=== PATIENT | female | born 1960 | race Caucasian/White ===

== ENCOUNTER 2017-01-18 15:43 | Emergency (ER) | payer OTHER ==
[2017-01-18 16:33] LABS: Bilirubin Negative (Negative); Blood, Urine Negative (Negative); Clarity Clear (Clear); Glucose, Urine (Dipstick) Negative (Negative); Leukocyte Trace (Negative); Nitrite Negative (Negative); Protein, Urine (Dipstick) Negative (Neg-Trace); Specific Gravity, Urine 1.015 (1.005-1.030); Urobilinogen 0.2 mg/dL (0.2-1.0); pH, Urine 6.5 (5.0-9.0)
[2017-01-18 16:49] LABS: Bacteria/HPF None Seen HPF (None Seen); Crystals/HPF None Seen HPF (Negative); Hyaline Casts/LPF NONE SEEN LPF (0-3 Hyaline); Other Casts/LPF None Seen LPF (0-3 Hyaline); Oval Fat Bodies/HPF None Seen HPF (None Seen); RBC/HPF None Seen HPF (0-3); Renal Epithelial None Seen HPF (0-3); Sperm/HPF None Seen HPF (None Seen); Squamous Epithelial None Seen HPF (0-3); Transitional Epithelial NONE SEEN HPF (0-3); Trichomonas/HPF None Seen HPF (None Seen); WBC/HPF 0-3 HPF (0-3); Yeast-All Forms None Seen HPF (None Seen)
== END 2017-01-18 16:53 | disposition home or self-care (01) ==
LOC: BURERS 15:43
DX: S30.0XXA Contusion of lower back and pelvis, initial encounter (principal); R42 Dizziness and giddiness; E03.9 Hypothyroidism, unspecified; J44.9 Chronic obstructive pulmonary disease, unspecified; F41.9 Anxiety disorder, unspecified; F31.9 Bipolar disorder, unspecified; F17.210 Nicotine dependence, cigarettes, uncomplicated; Z79.82 Long term (current) use of aspirin; Z79.899 Other long term (current) drug therapy; W28.XXXA Contact with powered lawn mower, initial encounter
CPT/HCPCS: 81003; 81015

== ENCOUNTER 2017-02-17 16:37 | Outpatient (CLI) | payer OTHER ==
[2017-02-17 17:48] LABS: ALT (SGPT) 64 U/L (8-55); AST (SGOT) 67 U/L (5-34); Albumin 4.2 g/dL (3.5-5.0); Alkaline Phosphatase 93 U/L (40-150); Bilirubin, Direct 0.3 mg/dL (0.1-0.3); Bilirubin, Total 0.5 mg/dL (0.2-1.2); Protein, Total 6.9 g/dL (6.0-8.3)
== END 2017-02-17 16:38 | disposition home or self-care (01) ==
LOC: HPCALD 16:37
PROVIDERS: ATTEND Physician Assistant
DX: B18.2 Chronic viral hepatitis C (principal)
CPT/HCPCS: 36415; 80076

== ENCOUNTER 2017-05-07 09:08 | Emergency (ER) | payer OTHER ==
[2017-05-07] MEDS ORDERED: ceFAZolin Sodium 1 GM VIAL ONE (09:35)
[2017-05-07] MEDS ORDERED: Sterile Water 10 ML ONE (09:37)
== END 2017-05-07 09:58 | disposition home or self-care (01) ==
LOC: BURERS 09:08
DX: M79.642 Pain in left hand (principal); E03.9 Hypothyroidism, unspecified; J44.9 Chronic obstructive pulmonary disease, unspecified; F31.9 Bipolar disorder, unspecified; F41.9 Anxiety disorder, unspecified; F17.210 Nicotine dependence, cigarettes, uncomplicated; Z79.82 Long term (current) use of aspirin; Z79.899 Other long term (current) drug therapy
CPT/HCPCS: 96372; A4216; J0690

== ENCOUNTER 2017-05-08 21:16 | Emergency (ER) | payer OTHER ==
[2017-05-08] MEDS ORDERED: Clindamycin/D5W 900 mg/50 ml Premix Bag ONE (22:16)
[2017-05-08] MEDS ORDERED: Ketorolac Tromethamine 30 MG/ML VIAL ONE (22:16)
[2017-05-08 22:28] LABS: #Basophils 0.2 thou/uL (0.0-0.2); #Eosinphils 0.3 thou/uL (0.0-0.7); #Lymphocytes 3.8 thou/uL (1.20-3.40); #Neutrophils 9.1 thou/uL (1.40-6.50); %Basophils 1.1 % (0.0-1.0); %Eosinophils 2.1 % (0.0-10.0); %Lymphocytes 26.5 % (21.0-51.0); %Monocytes 6.9 % (0.0-10.0); %Neutrophils 63.4 % (42.0-75.0); Hemoglobin 14.2 g/dL (12.0-16.0); Mean Corpuscular HGB CONC 35.6 g/dL (32.0-36.0); Mean Corpuscular Hemoglobin 31.6 pg (27.0-31.0); Mean Corpuscular Volume 88.6 fl (81.0-99.0); Mean Platelet Volume 6.2 fL (7.4-10.4); Platelet Count 292 thou/uL (130-400); RBC Distribution Width 11.2 % (11.5-14.5); Red Blood Cell (RBC) Count 4.51 mill/uL (4.20-5.40); White Blood Cell (WBC) Count 14.4 thou/uL (4.8-10.8)
[2017-05-08 22:32] LABS: Bilirubin Negative (Negative); Blood, Urine Negative (Negative); Clarity Slightly Cloudy (Clear); Glucose, Urine (Dipstick) Negative (Negative); Leukocyte Trace (Negative); Nitrite Negative (Negative); Protein, Urine (Dipstick) Negative (Neg-Trace); Urobilinogen 0.2 mg/dL (0.2-1.0)
[2017-05-08 22:40] LABS: Bacteria/HPF Rare-Few HPF (None Seen); RBC/HPF 0-3 HPF (0-3); Squamous Epithelial 0-3 HPF (0-3); WBC/HPF 0-3 HPF (0-3)
[2017-05-08 22:48] LABS: ALT (SGPT) 34 U/L (8-55); AST (SGOT) 33 U/L (5-34); Albumin 4.3 g/dL (3.5-5.0); Alkaline Phosphatase 87 U/L (40-150); Anion Gap 15 mmol/L (10-20); BUN (Urea Nitrogen) 7 mg/dL (9.8-20.1); Bilirubin, Total 0.6 mg/dL (0.2-1.2); Calc. Creatinine Clearance 0 mL/min (70-130); Calcium 9.6 mg/dL (7.8-10.44); Carbon Dioxide 27 mmol/L (22-29); Chloride 100 mmol/L (98-107); Estimated GFR-MDRD 73; Globulin 3.9 g/dL (2.4-3.5); Glucose 93 mg/dL (70-105); Potassium 3.9 mmol/L (3.5-5.1); Protein, Total 8.2 g/dL (6.0-8.3); Sodium 138 mmol/L (136-145)
== END 2017-05-08 23:28 | disposition home or self-care (01) ==
LOC: BURERS 21:16
DX: L03.114 Cellulitis of left upper limb (principal); E03.9 Hypothyroidism, unspecified; J44.9 Chronic obstructive pulmonary disease, unspecified; F41.9 Anxiety disorder, unspecified; F31.9 Bipolar disorder, unspecified; F17.210 Nicotine dependence, cigarettes, uncomplicated; Z79.82 Long term (current) use of aspirin; Z79.899 Other long term (current) drug therapy; Z79.891 Long term (current) use of opiate analgesic
CPT/HCPCS: 36415; 80053; 81003; 81015; 83605; 85025; 87040; 87086; 96365; 96375; J1885; J3490

== ENCOUNTER 2017-05-10 13:06 | Emergency (ER) | payer OTHER ==
[2017-05-10] MEDS ORDERED: Adacel (T-DAP) 0.5 ML VIAL ONE (13:19)
[2017-05-10] MEDS ORDERED: Lidocaine 1% w/Epinephrine 1:100K 30 ML VIAL ONE (13:38)
[2017-05-10] MEDS ORDERED: Ibuprofen 200 MG TAB ONE (14:00)
== END 2017-05-10 14:18 | disposition home or self-care (01) ==
LOC: BURERS 13:06
DX: L02.512 Cutaneous abscess of left hand (principal); E03.9 Hypothyroidism, unspecified; J44.9 Chronic obstructive pulmonary disease, unspecified; F31.9 Bipolar disorder, unspecified; F41.9 Anxiety disorder, unspecified; F17.210 Nicotine dependence, cigarettes, uncomplicated
CPT/HCPCS: 10060; 87070; 87205; 90471; 90715; J2001

== ENCOUNTER 2017-05-11 17:13 | Inpatient (IN) | payer OTHER ==
[2017-05-11 17:40] VITALS: BMI 33.2
[2017-05-11] MEDS ORDERED: Bisacodyl 10 MG SUPP PR PRN (19:00)
[2017-05-11] MEDS ORDERED: HYDROcodone/Acetaminophen 10/325 mg Tablet PO PRN (19:00)
[2017-05-11] MEDS ORDERED: Ondansetron ODT 4 MG TAB PO PRN ×2 (19:00→20:47)
[2017-05-11] MEDS ORDERED: Acetaminophen 325 MG TAB PO PRN (19:00)
[2017-05-11] MEDS ORDERED: Milk Of Magnesia 30 ML UDCUP PO PRN (19:00)
[2017-05-11] MEDS ORDERED: Temazepam 15 MG CAP PO SCH (21:00)
[2017-05-11] MEDS ORDERED: Vancomycin HCl 1 GM in Sodium Chloride 0.9% 250 ML 250 ML IVPB SCH (21:00)
[2017-05-11] MEDS: Atorvastatin Calcium 10 MG TAB PO SCH (23:40)
[2017-05-11] MEDS: rOPINIRole HCl 0.25 MG TAB PO SCH (23:40)
[2017-05-11] MEDS: Nicotine 14 MG PATCH TD SCH (23:41)
[2017-05-11] MEDS: Senokot 8.6 MG TAB PO SCH (23:41)
[2017-05-12] MEDS: Piperacillin/Tazobactam 3.375 GM in Sodium Chloride 0.9% 100 ML IVPB SCH ×4 (01:25→18:06)
[2017-05-12 05:06] LABS: ALT (SGPT) 46 U/L (8-55); AST (SGOT) 70 U/L (5-34); Albumin 3.7 g/dL (3.5-5.0); Alkaline Phosphatase 81 U/L (40-150); Anion Gap 12 mmol/L (10-20); BUN (Urea Nitrogen) 13 mg/dL (9.8-20.1); Bilirubin, Total 0.4 mg/dL (0.2-1.2); Calc. Creatinine Clearance 92 mL/min (70-130); Calcium 8.6 mg/dL (7.8-10.44); Carbon Dioxide 27 mmol/L (22-29); Chloride 103 mmol/L (98-107); Estimated GFR-MDRD 71; Globulin 3.3 g/dL (2.4-3.5); Glucose 126 mg/dL (70-105); Potassium 4.2 mmol/L (3.5-5.1); Sodium 138 mmol/L (136-145)
[2017-05-12 05:09] LABS: #Basophils 0.1 thou/uL (0.0-0.2); #Eosinphils 0.2 thou/uL (0.0-0.7); #Lymphocytes 2.3 thou/uL (1.20-3.40); #Monocytes 0.6 thou/uL (0.11-0.59); #Neutrophils 3.3 thou/uL (1.40-6.50); %Basophils 1.3 % (0.0-1.0); %Eosinophils 3.5 % (0.0-10.0); %Lymphocytes 35.6 % (21.0-51.0); %Monocytes 9.6 % (0.0-10.0); %Neutrophils 50.1 % (42.0-75.0); Hemoglobin 12.1 g/dL (12.0-16.0); Mean Corpuscular HGB CONC 33.6 g/dL (32.0-36.0); Mean Corpuscular Hemoglobin 30.1 pg (27.0-31.0); Mean Corpuscular Volume 89.9 fl (81.0-99.0); Mean Platelet Volume 5.4 fL (7.4-10.4); Platelet Count 285 thou/uL (130-400); RBC Distribution Width 11.4 % (11.5-14.5); Red Blood Cell (RBC) Count 4.01 mill/uL (4.20-5.40); White Blood Cell (WBC) Count 6.6 thou/uL (4.8-10.8)
[2017-05-12] MEDS: Levothyroxine Sodium 25 MCG TAB PO SCH (06:21)
[2017-05-12] MEDS: HYDROMORPHONE PO SCH ×3 (06:22→14:46)
[2017-05-12] MEDS: Albuterol Sulfate 2.5 mg/3 ml Neb NEB SCH ×2 (06:22→18:07)
[2017-05-12] MEDS ORDERED: Aspirin 81 mg Enteric Coated Tablet PO SCH (09:00)
[2017-05-12] MEDS ORDERED: clonazePAM 0.5 MG TAB PO SCH ×2 (09:00→11:00)
[2017-05-12] MEDS ORDERED: VANCOMYCIN IVPB PRN (09:47)
[2017-05-12] MEDS: PARoxetine 20 MG TAB PO SCH (10:15)
[2017-05-12] MEDS: hydrOXYzine 25 MG TAB PO SCH (10:16)
[2017-05-12] MEDS: clonazePAM 0.5 MG TAB PO SCH ×3 (10:16→21:29)
[2017-05-12] MEDS: Fluticasone Propionate Nasal Spray 16 gm Bottle NASAL SCH (10:16)
[2017-05-12] MEDS: Vancomycin HCl 1 GM in Sodium Chloride 0.9% 250 ML 250 ML IVPB SCH ×2 (10:18→22:36)
[2017-05-12 12:18] LABS: #Basophils 0.1 thou/uL (0.0-0.2); #Eosinphils 0.2 thou/uL (0.0-0.7); #Monocytes 0.6 thou/uL (0.11-0.59); #Neutrophils 2.3 thou/uL (1.40-6.50); %Basophils 1.8 % (0.0-1.0); %Eosinophils 4.7 % (0.0-10.0); %Lymphocytes 38.3 % (21.0-51.0); %Neutrophils 44.1 % (42.0-75.0); Anion Gap 15 mmol/L (10-20); BUN (Urea Nitrogen) 11 mg/dL (9.8-20.1); Calc. Creatinine Clearance 97 mL/min (70-130); Calcium 8.3 mg/dL (7.8-10.44); Carbon Dioxide 25 mmol/L (22-29); Chloride 103 mmol/L (98-107); Estimated GFR-MDRD 75; Glucose 148 mg/dL (70-105); Hemoglobin 12.1 g/dL (12.0-16.0); Mean Corpuscular HGB CONC 34.4 g/dL (32.0-36.0); Mean Corpuscular Hemoglobin 30.6 pg (27.0-31.0); Mean Corpuscular Volume 89.2 fl (81.0-99.0); Mean Platelet Volume 5.5 fL (7.4-10.4); Platelet Count 247 thou/uL (130-400); RBC Distribution Width 11.2 % (11.5-14.5); Red Blood Cell (RBC) Count 3.94 mill/uL (4.20-5.40); Sodium 139 mmol/L (136-145); White Blood Cell (WBC) Count 5.2 thou/uL (4.8-10.8)
[2017-05-12] MEDS: rOPINIRole HCl 0.25 MG TAB PO SCH (21:27)
[2017-05-12] MEDS: Senokot 8.6 MG TAB PO SCH (21:27)
[2017-05-12] MEDS: Atorvastatin Calcium 10 MG TAB PO SCH (21:29)
[2017-05-12] MEDS: Docusate 100 MG CAP PO PRN (21:29)
[2017-05-12] MEDS: HYDROcodone/Acetaminophen 5/325 mg Tablet PO PRN (21:29)
[2017-05-12] MEDS: Nicotine 14 MG PATCH TD SCH (23:23)
[2017-05-13] MEDS: Piperacillin/Tazobactam 3.375 GM in Sodium Chloride 0.9% 100 ML IVPB SCH ×5 (00:55→23:53)
[2017-05-13] MEDS: HYDROcodone/Acetaminophen 5/325 mg Tablet PO PRN ×2 (02:22→19:39)
[2017-05-13] MEDS: Levothyroxine Sodium 25 MCG TAB PO SCH (06:13)
[2017-05-13] MEDS: Albuterol Sulfate 2.5 mg/3 ml Neb NEB SCH ×2 (06:15→19:40)
[2017-05-13] MEDS: HYDROMORPHONE PO SCH ×3 (06:28→15:08)
[2017-05-13] MEDS: clonazePAM 0.5 MG TAB PO SCH ×3 (08:49→21:06)
[2017-05-13] MEDS: Fluticasone Propionate Nasal Spray 16 gm Bottle NASAL SCH (08:50)
[2017-05-13] MEDS: PARoxetine 20 MG TAB PO SCH (08:51)
[2017-05-13] MEDS: hydrOXYzine 25 MG TAB PO SCH (08:51)
[2017-05-13] MEDS: Vancomycin HCl 1 GM in Sodium Chloride 0.9% 250 ML 250 ML IVPB SCH (11:19)
[2017-05-13] MEDS ORDERED: Ketorolac Tromethamine 60 MG/2 ML VIAL IM SCH (16:15)
[2017-05-13] MEDS ORDERED: Ketorolac Tromethamine 60 MG/2 ML VIAL ONE (16:39)
[2017-05-13] MEDS: rOPINIRole HCl 0.25 MG TAB PO SCH (21:04)
[2017-05-13] MEDS: Senokot 8.6 MG TAB PO SCH (21:05)
[2017-05-13] MEDS: Docusate 100 MG CAP PO PRN (21:06)
[2017-05-13] MEDS: Atorvastatin Calcium 10 MG TAB PO SCH (21:06)
[2017-05-13] MEDS: Nicotine 14 MG PATCH TD SCH (21:24)
[2017-05-13 22:26] LABS: Vancomycin, Trough 22.7 ug/mL
[2017-05-14] MEDS: Vancomycin HCl 750 MG in Sodium Chloride 0.9% 250 ML 250 ML IVPB SCH ×2 (05:02→16:09)
[2017-05-14] MEDS: Levothyroxine Sodium 25 MCG TAB PO SCH (06:24)
[2017-05-14] MEDS: HYDROMORPHONE PO SCH ×3 (06:25→15:11)
[2017-05-14] MEDS: Albuterol Sulfate 2.5 mg/3 ml Neb NEB SCH (07:18)
[2017-05-14] MEDS: Piperacillin/Tazobactam 3.375 GM in Sodium Chloride 0.9% 100 ML IVPB SCH ×3 (08:02→18:06)
[2017-05-14] MEDS: hydrOXYzine 25 MG TAB PO SCH (09:20)
[2017-05-14] MEDS: PARoxetine 20 MG TAB PO SCH (09:20)
[2017-05-14] MEDS: Fluticasone Propionate Nasal Spray 16 gm Bottle NASAL SCH (09:20)
[2017-05-14] MEDS: clonazePAM 0.5 MG TAB PO SCH ×2 (09:20→15:09)
[2017-05-14 18:34] VITALS: BP 136/88; TEMP 97.4
== END 2017-05-14 19:41 | disposition home or self-care (01) | DRG 603 ==
LOC: BURMED 17:13
PROVIDERS: ADMIT Family Medicine; ATTEND Family Medicine
DX: L02.512 Cutaneous abscess of left hand (principal); Z99.81 Dependence on supplemental oxygen; S60.562A Insect bite (nonvenomous) of left hand, initial encounter; F31.9 Bipolar disorder, unspecified; G89.29 Other chronic pain; Z79.891 Long term (current) use of opiate analgesic; F17.210 Nicotine dependence, cigarettes, uncomplicated; L03.012 Cellulitis of left finger; I10 Essential (primary) hypertension; E78.5 Hyperlipidemia, unspecified; E03.9 Hypothyroidism, unspecified; J44.9 Chronic obstructive pulmonary disease, unspecified; H40.9 Unspecified glaucoma; M19.90 Unspecified osteoarthritis, unspecified site; K21.9 Gastro-esophageal reflux disease without esophagitis; M47.897 Other spondylosis, lumbosacral region
CPT/HCPCS: 36415; 80048; 80053; 80202; 85025; 87040; 97602; A4216; J1885; J2543; J3370; J7050; J7611

== ENCOUNTER 2017-09-26 09:33 | Emergency (ER) | payer OTHER ==
[2017-09-26] MEDS ORDERED: Ketorolac Tromethamine 30 MG/ML VIAL ONE (09:49)
[2017-09-26] MEDS ORDERED: methylPREDNISolone Sod Succ/PF 125 MG/2 ML VIAL ONE (09:49)
[2017-09-26 10:30] LABS: Bilirubin Negative (Negative); Blood, Urine Negative (Negative); Clarity Clear (Clear); Glucose, Urine (Dipstick) Negative (Negative); Leukocyte Negative (Negative); Nitrite Negative (Negative); Protein, Urine (Dipstick) Trace mg/dL (Neg-Trace); Urobilinogen 0.2 mg/dL (0.2-1.0)
[2017-09-26 10:42] LABS: Amphetamine Detected (NotDetected); Benzodiazepine Screen Detected (NotDetected); Cocaine Metabolite Screen Detected (NotDetected); Methadone Not Detected (NotDetected); Methamphetamine Detected (NotDetected); Opiate Screen Detected (NotDetected); Phencyclidine (PCP) Not Detected (NotDetected); THC/Cannabinoid Screen Not Detected (NotDetected); Tricyclic Screen Detected (NotDetected)
[2017-09-26 10:43] LABS: Barbiturates Screen Not Detected (NotDetected); Medtox Control Line Valid? VALID (VALID); Oxycodone Screen Detected (NotDetected)
== END 2017-09-26 11:10 | disposition home or self-care (01) ==
LOC: BURERS 09:33
DX: M54.5 Low back pain (principal); F19.10 Other psychoactive substance abuse, uncomplicated; E03.9 Hypothyroidism, unspecified; J44.9 Chronic obstructive pulmonary disease, unspecified; F17.210 Nicotine dependence, cigarettes, uncomplicated; F41.9 Anxiety disorder, unspecified; F31.9 Bipolar disorder, unspecified
CPT/HCPCS: 51701; 80306; 81003; 96372; A4353; J1885; J2930

== ENCOUNTER 2017-10-16 14:14 | Emergency (ER) | payer OTHER ==
[2017-10-16] MEDS ORDERED: Ketorolac Tromethamine 60 MG/2 ML VIAL ONE (14:38)
[2017-10-16] MEDS ORDERED: methylPREDNISolone Sod Succ/PF 125 MG/2 ML VIAL ONE (14:38)
== END 2017-10-16 14:56 | disposition home or self-care (01) ==
LOC: BURERS 14:14
DX: M54.5 Low back pain (principal); G89.29 Other chronic pain; E03.9 Hypothyroidism, unspecified; J44.9 Chronic obstructive pulmonary disease, unspecified; F41.9 Anxiety disorder, unspecified; F31.9 Bipolar disorder, unspecified; F17.210 Nicotine dependence, cigarettes, uncomplicated
CPT/HCPCS: 96372; J1885; J2930

== ENCOUNTER 2017-10-19 13:54 | Outpatient (CLI) | payer OTHER ==
--- NOTE | 2017-10-19 16:17 | RAD ---
LUMBAR SPINE THREE VIEWS 10/19/17 Disc space narrowing is present at L2-L3 along with osteophytes anteriorly. There may be some minor n arrowing at L1-L2. No overt fracture was seen. the SI joints are symmetrical. The visible portions of the bony pelvis appear intact. Some calcification is seen in the abdominal aorta. IMPRESSION: Evidence of degenerative disc disease at L2-L3 which is probably longstanding. Cross-sectional imagin g, such as MRI, would be needed to assess if there was any neural impingement. POS: HOME
== END 2017-10-19 13:55 | disposition home or self-care (01) ==
LOC: BURRAD 13:54
PROVIDERS: ATTEND Physician Assistant
DX: M54.5 Low back pain (principal); M51.36 Other intervertebral disc degeneration, lumbar region
CPT/HCPCS: 72100

== ENCOUNTER 2017-10-23 13:07 | Emergency (ER) | payer OTHER ==
[2017-10-23] MEDS ORDERED: Ketorolac Tromethamine 60 MG/2 ML VIAL ONE (13:59)
== END 2017-10-23 14:10 | disposition home or self-care (01) ==
LOC: BURERS 13:07
DX: G89.29 Other chronic pain (principal); M54.9 Dorsalgia, unspecified; F19.10 Other psychoactive substance abuse, uncomplicated; E03.9 Hypothyroidism, unspecified; F31.9 Bipolar disorder, unspecified; F41.9 Anxiety disorder, unspecified; F17.210 Nicotine dependence, cigarettes, uncomplicated; J44.9 Chronic obstructive pulmonary disease, unspecified
CPT/HCPCS: 96372; J1885

== ENCOUNTER 2018-08-01 10:09 | Outpatient (CLI) | payer OTHER ==
--- NOTE | 2018-08-01 19:11 | ULT ---
ABDOMINAL ULTRASOUND: Date: 08-01-18 Ultrasonography of the abdomen was performed for evaluation of generalized pain. FINDINGS: The liver is slightly echo dense so I cannot exclude the possibility of fatty infiltration. No focal hepatic lesions were seen. There are no dilated ducts. The liver measures about 15 cm in oblique sagi ttal dimension. The spleen is normal in size. The pancreas is partially obscured by gas, but the visi ble areas were unremarkable. Gallbladder contains no signs of stones or sludge. The wall thickness was slightly increased at 3 mm, but this may or may not be significant. The common bile duct was a normal 5 mm in caliber. The right kidney is 8.2 cm long and the left is 9.4 cm. No mass or hydronephrosis was seen in either. Cortex was ample around each kidney. The aorta and inferior vena cava were unremarkable. IMPRESSION: No acute abdominal findings. POS: HOME
== END 2018-08-01 10:10 | disposition home or self-care (01) ==
LOC: BURULT 10:09
PROVIDERS: ATTEND Internal Medicine Gastroenterology
DX: R19.00 Intra-abdominal and pelvic swelling, mass and lump, unspecified site (principal); R10.84 Generalized abdominal pain
CPT/HCPCS: 76700

== ENCOUNTER 2018-11-16 14:16 | Outpatient (CLI) | payer OTHER ==
--- NOTE | 2018-11-16 15:15 | RAD ---
CHEST 2 VIEWS: Date: 11/16/18 HISTORY: Chest pain. COMPARISON: 12/25/17. FINDINGS: Cardiac silhouette and pulmonary vasculature are unremarkable. Mediastinum is midline. No confluent a ir space consolidation, pneumothorax, or pleural fluid. IMPRESSION: No active cardiopulmonary abnormalities are demonstrated. POS: [facility]
== END 2018-11-16 14:17 | disposition home or self-care (01) ==
LOC: BURRAD 14:16
PROVIDERS: ATTEND Physician Assistant
DX: R07.9 Chest pain, unspecified (principal)
CPT/HCPCS: 71046

== ENCOUNTER 2018-12-13 11:22 | Outpatient (CLI) | payer OTHER ==
--- NOTE | 2018-12-13 20:14 | RAD ---
RIGHT KNEE FOUR VIEWS: 12/13/2018 FINDINGS: No fracture is seen, but there does appear to be some joint effusion. The joint space is normal in w idth. The articular surfaces are smooth. IMPRESSION: Joint effusion. POS: HOME
== END 2018-12-13 11:23 | disposition home or self-care (01) ==
LOC: BURRAD 11:22
PROVIDERS: ATTEND Physician Assistant
DX: M25.461 Effusion, right knee (principal)